=== PATIENT | male | born 1950 | race Caucasian/White ===

== ENCOUNTER 2017-07-25 22:14 | Emergency (ER) | payer BC, OTHER ==
[~2017-07-25] VITALS: Ht 177.8 cm; Wt 90.7 kg
[2017-07-25 22:44] VITALS: BP_SYST 167
[2017-07-25] MEDS ORDERED: LOSA1TAB35 PO (22:52)
[2017-07-25] MEDS ORDERED: MECL-110 PO (22:53)
[2017-07-25] MEDS ORDERED: GLU500 PO (22:54)
[2017-07-25] MEDS ORDERED: METO-442 PO (22:55)
[2017-07-26] MEDS ORDERED: PROCHLORPERAZINE EDISYLATE 10 MG/2 ML VIAL IVP ONE
[2017-07-26] MEDS ORDERED: MECLIZINE HCL 25 MG TABLET (ANITVERT) PO ONE
[2017-07-26] MEDS ORDERED: NACL 0.9% 1,000 ML IV ONE
[2017-07-26 01:20] VITALS: BP_SYST 157
== END 2017-07-26 01:20 | disposition left against medical advice (07) ==
LOC: SED 22:14
DX: H81.01 Meniere's disease, right ear (principal); E11.9 Type 2 diabetes mellitus without complications; I10 Essential (primary) hypertension; R11.2 Nausea with vomiting, unspecified
CPT/HCPCS: 82962; 96361; 96374; 99284; J0780; J7030 ×2; J8597